=== PATIENT | female | born 2000 | race Caucasian/White ===

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

== ENCOUNTER 2023-09-03 19:50 | Emergency (ER) | payer OTHER ==
[~2023-09-03] VITALS: Ht 157.5 cm; Wt 80.5 kg
[~2023-09-03 19:50] MED LIST: MEDR150V13 IM
[2023-09-03 20:14] VITALS: TEMP 98.4
[2023-09-03 21:25] VITALS: BP 112/69; PULSE 70; RESP 14
[2023-09-03] MEDS: DEXAMETHASONE 4 MG TABLET PO ONE (21:33)
[2023-09-03] MEDS: DiphenhydrAMINE HCL 25 MG CAPSULE PO ONE (21:33)
== END 2023-09-03 21:37 | disposition home or self-care (01) ==
LOC: EMS 19:50
DX: T78.40XA Allergy, unspecified, initial encounter (principal); F17.210 Nicotine dependence, cigarettes, uncomplicated; Z90.49 Acquired absence of other specified parts of digestive tract; X58.XXXA Exposure to other specified factors, initial encounter
CPT/HCPCS: 99283; J8540